=== PATIENT | female | born 1965 | race Caucasian/White ===

== ENCOUNTER 2022-01-17 08:17 | Outpatient (CLI) | payer OTHER, SELFPAY ==
[2022-01-17 13:46] LABS: Albumin* 4.4 g/dL (3.3-5.0)
[2022-01-17 13:47] LABS: Chloride* 103 mmol/L (96-114); Potassium* 4.5 mmol/L (3.6-5.1); Sodium* 138 mmol/L (135-149)
[2022-01-17 13:49] LABS: Aspartate Amino Transferase* 23 U/L (12-35); Bilirubin Total* 0.3 mg/dL (0.1-1.5); Carbon Dioxide* 29 mmol/L (20-32); Cholesterol* 262 mg/dL (90-199); Creatinine* 1.2 mg/dL (0.5-1.5); Estimated Glomerular Filt Rate 52 ml/min; Total Protein* 6.7 g/dL (6.0-8.3)
[2022-01-17 13:50] LABS: Alanine Aminotransferase* 19 U/L (4-35); Alkaline Phosphatase* 61 U/L (40-150); Blood Urea Nitrogen* 19 mg/dL (7-30); Calcium* 9.5 mg/dL (8.4-10.6); Glucose* 84 mg/dL (60-115); HDL Cholesterol* 80 mg/dL (>=50); LDL Cholesterol Calculated 166 mg/dL (<100); Triglycerides* 82 mg/dL (40-149)
[2022-01-17 14:14] LABS: Creatinine Urine 58.9 mg/dL
[2022-01-17 14:21] LABS: Microalbumin Creatinine Ratio 10 mg/g (0-30); Microalbumin Urine < 1 mg/dL
[2022-01-17 14:27] LABS: TSH With Reflex to FT4* 0.065 uIU/mL (0.270-4.200)
[2022-01-17 21:43] LABS: Free T4 Free Thyroxine* 1.24 ng/dL (0.70-1.85)
== END 2022-01-17 08:18 | disposition home or self-care (01) ==
PROVIDERS: PCP Physician Assistant Medical; Visit Provider Physician Assistant Medical
DX: Z00.00 Encounter for general adult medical examination without abnormal findings (principal); N18.30 Chronic kidney disease, stage 3 unspecified; E78.5 Hyperlipidemia, unspecified; R79.89 Other specified abnormal findings of blood chemistry; Z13.29 Encounter for screening for other suspected endocrine disorder
CPT/HCPCS: 80053; 80061; 82043; 82570; 84439; 84443

== ENCOUNTER 2022-01-27 15:46 | Outpatient (CLI) | payer OTHER, SELFPAY ==
--- NOTE | 2022-01-27 16:00 | CRLHL7_ITS ---
For Patients: As a result of the Century Cures Act, medical imaging exams and procedure reports are released immediately into your electronic medical record. You may view this report before your referring provider. If you have questions, please contact your health care provider. INDICATION: HYPOTHYROIDISM COMPARISON: none TECHNIQUE: Duarte scale and color Doppler images were acquired of the thyroid gland. FINDINGS: The thyroid gland demonstrates normal uniform echogenicity and has a smooth outer contour. The right lobe measures 4.8 x 1.7 x 1.9 cm and the left lobe measures 4.7 x 1.9 x 1.5 cm in size. Near isoechoic nodule left thyroid lobe measures 9 x 6 x 7 millimeters, TR 3 nodule which does not require follow-up. Solid and cystic nodule inferior pole left thyroid lobe measuring 7 x 4 x 5 millimeters, TR 2 nodule which does not require follow-up. The color Doppler images demonstrate normal vascularity. There is no evidence of cervical lymphadenopathy or parathyroid mass. IMPRESSION: No suspicious thyroid nodule. Dictated by Arnold Barrientos MD @ 01/28/2022 9:59:34 AM (Electronically Signed)
== END 2022-01-27 15:47 | disposition home or self-care (01) ==
PROVIDERS: PCP Physician Assistant Medical; Visit Provider Physician Assistant Medical
DX: E03.9 Hypothyroidism, unspecified (principal); R79.89 Other specified abnormal findings of blood chemistry
CPT/HCPCS: 76536

== ENCOUNTER 2024-10-02 13:40 | Outpatient (CLI) | payer OTHER, SELFPAY | END 2024-10-02 13:41 | disposition home or self-care (01) | LOC: NFLDREF 10-03 03:21 | PROVIDERS: PCP Physician Assistant Medical; Referring Provider Physician Assistant Medical; Visit Provider Physician Assistant Medical | DX: Z00.00 Encounter for general adult medical examination without abnormal findings (principal); E78.5 Hyperlipidemia, unspecified; R63.5 Abnormal weight gain | CPT/HCPCS: 80053; 80061; 84443 ==